=== PATIENT | female | born 1995 | race American Indian/Alaskan Native ===

== ENCOUNTER 2017-02-11 09:53 | Emergency (ER) | payer OTHER ==
[2017-02-11 09:54] VITALS: BMI 17.7
[2017-02-11 10:08] VITALS: BP 114/77; PULSE 76; RESP 16; TEMP 98; O2SAT 100
[2017-02-11] MEDS ORDERED: Sodium Chloride 0.9% 1,000 ML IV ONE (10:28)
[2017-02-11] MEDS ORDERED: Sodium Chloride 0.9% 1,000 ML ONE (10:33)
[2017-02-11 10:56] LABS: BASO % 0.8 % (0.0-2.0); EOS # 0.1 K/uL (0.0-0.7); EOS % 1.8 % (0.0-4.0); HEMOGLOBIN 10.9 g/dL (11.0-16.0); LYMPH # 1.2 K/uL (1.0-4.3); LYMPH % 31.2 % (20.0-40.0); MEAN CELL VOLUME 77.5 fL (81.0-99.0); MEAN CORPUSCULAR HEMOGLOBIN 24.8 pg (27.0-31.0); MEAN PLATELET VOLUME 8.9 fL (7.2-11.7); MONO # 0.4 K/uL (0.0-0.8); MONO % 10.2 % (0.0-10.0); NEUT # 2.2 K/uL (1.8-7.0); NRBC % 0.1 % (0.0-2.0); RBC 4.39 Mil/uL (3.80-5.20); RED CELL DISTRIBUTION WIDTH 16.8 % (11.5-14.5); WHITE BLOOD COUNT 3.9 K/uL (4.8-10.8)
[2017-02-11 10:59] LABS: HCG,QUALITATIVE URINE NEGATIVE (NEGATIVE)
[2017-02-11 11:05] LABS: ALBUMIN 3.9 g/dL (3.5-5.0)
[2017-02-11 11:07] LABS: SQUAMOUS EPITHIAL 65 /hpf (0-5); URINE BACTERIA RARE (<OCC); URINE BILIRUBIN NEGATIVE (NEGATIVE); URINE BLOOD 3+ (NEGATIVE); URINE CLARITY Hazy (Clear); URINE GLUCOSE (UA) NORMAL (Normal); URINE LEUKOCYTE ESTERASE NEG Leu/uL (Negative); URINE NITRATE NEGATIVE (NEGATIVE); URINE PROTEIN 2+ mg/dL (NEGATIVE); URINE UROBILINOGEN NORMAL mg/dL (0.2-1.0)
[2017-02-11 11:08] LABS: ALB/GLOB RATIO 1.3 (1.0-2.1); ALT/SGPT 29 U/L (9-52); AST/SGOT 22 U/L (14-36); BLOOD UREA NITROGEN 11 mg/dL (7-17); GFR AFRICAN-AMERICAN > 60; GFR NON-AFRICAN AMERICAN > 60; URINE COLOR YELLOW (YELLOW)
[2017-02-11 11:09] LABS: LIPASE 131 U/L (23-300)
[2017-02-11 11:24] LABS: PHENCYCLIDINE, UR NEGATIVE (NEGATIVE)
[2017-02-11 11:29] LABS: BARBITURATES, UR NEGATIVE (NEGATIVE); BENZODIAZEPINES, UR NEGATIVE (NEGATIVE); OPIATES, UR POSITIVE (NEGATIVE)
--- NOTE | 2017-02-11 11:30 | US ---
HISTORY: abd pain COMPARISON: None available. TECHNIQUE: Sonographic evaluation of the abdomen. FINDINGS: LIVER: Measures 16.6 cm in sagittal dimension and appears within normal limits of size, shape, and echotexture. No focal hepatic mass identified. The main portal vein appears patent with normal directional flow. No intrahepatic bile duct dilatation. GALLBLADDER: Gallstones. 7 mm echogenic focus likely gallbladder polyp. No gallbladder wall thickening. Negative sonographic Abdi's sign as assessed by the outside dealer sales representative. COMMON BILE DUCT: Measures 3 mm. PANCREAS: Not well visualized. RIGHT KIDNEY: Measures 11.5 x 4.8 x 5.3cm. No obstructing calculus or hydronephrosis identified. LEFT KIDNEY: Measures 11.1 x 5.3 x 6.0cm. No obstructing calculus or hydronephrosis identified. SPLEEN: Measures approximately 10 cm. AORTA: Limited views appear unremarkable. IVC: Limited views appear unremarkable. OTHER FINDINGS: None. IMPRESSION: Cholelithiasis. Probable 7 mm gallbladder polyp. No consensus exist regarding management of polyps in the size range. Current recommendations indicate continued surveillance with serial follow-up imaging at 3, 6, and 12 months.
--- NOTE | 2017-02-11 12:09 | C.PDOC ---
History Of Present Illness 21 y/o female presents to the ED for evaluation of RUQ abdominal pain for the last week. Notes pain is not changed with food. Pt reports having similar symptoms in the past. Patient states she was recently diagnosed with gallstones , but has not followed up with GI yet. Otherwise, denies any nausea, vomiting, diarrhea, changes in bowel habits, dysuria, hematuria, frequency, flank pain, vaginal discharge, vaginal bleeding, fever, chills, or any other associated symptoms at this time. Time Seen by Provider: 02/11/17 09:58 Chief Complaint (Nursing): Abdominal Pain History Per: Patient History/Exam Limitations: no limitations Onset/Duration Of Symptoms: Days (1 week) Current Symptoms Are (Timing): Still Present Location Of Pain/Discomfort: RUQ Radiation Of Pain To:: None Quality Of Discomfort: "Pain" Associated Symptoms: denies: Fever, Chills, Nausea, Vomiting, Diarrhea, Loss Of Appetite, Back Pain, Chest Pain, Constipation, Urinary Symptoms Exacerbating Factors: None Alleviating Factors: None Recent travel outside of the [place]: No Additional History Per: Patient Abnormal Vaginal Bleeding: No Past Medical History Reviewed: Historical Data, Nursing Documentation, Vital Signs Vital Signs: Last Vital Signs Temp 98.0 F 02/11/17 10:07 Pulse 76 02/11/17 10:07 Resp 16 02/11/17 10:07 BP 114/77 02/11/17 10:07 Pulse Ox 100 02/11/17 15:38 - Medical History PMH: Anemia, Gall Bladder Disease Family History: States: Unknown Family Hx - Social History Hx Alcohol Use: No Hx Substance Use: No - Immunization History Hx Tetanus Toxoid Vaccination: No Hx Influenza Vaccination: No Hx Pneumococcal Vaccination: No Review Of Systems Except As Marked, All Systems Reviewed And Found Negative. Constitutional: Negative for: Fever, Chills Gastrointestinal: Positive for: Abdominal Pain (RUQ). Negative for: Nausea, Vomiting, Diarrhea, Constipation Genitourinary: Negative for: Dysuria, Frequency, Incontinence, Hematuria, Vaginal Discharge, Vaginal Bleeding Musculoskeletal: Negative for: Back Pain Physical Exam - Physical Exam Appears: Non-toxic, No Acute Distress Skin: Normal Color, Warm, Dry Head: Atraumatic, Normacephalic Eye(s): bilateral: Normal Inspection, EOMI Nose: Normal Oral Mucosa: Moist Neck: Normal ROM, Supple Chest: Symmetrical Cardiovascular: Rhythm Regular, No Murmur Respiratory: Normal Breath Sounds, No Rales, No Rhonchi, No Wheezing Gastrointestinal/Abdominal: Soft, Tenderness (RUQ), No Guarding, No Rebound Back: Normal Inspection Extremity: Normal ROM Neurological/Psych: Oriented x3, Normal Speech ED Course And Treatment - Laboratory Results Result Diagrams: 02/11/17 10:46 02/11/17 10:46 O2 Sat by Pulse Oximetry: 100 (RA) Pulse Ox Interpretation: Normal - CT Scan/US Abd US Other Rad Studies (CT/US): Read By Radiologist, Radiology Report Reviewed CT/US Interpretation: HISTORY: abd pain. COMPARISON: None available. TECHNIQUE: Sonographic evaluation of the abdomen. FINDINGS: LIVER: Measures 16.6 cm in sagittal dimension and appears within normal limits of size, shape, and echotexture. No focal hepatic mass identified. The main portal vein appears patent with normal directional flow. No intrahepatic bile duct dilatation. GALLBLADDER: Gallstones. 7 mm echogenic focus likely gallbladder polyp. No gallbladder wall thickening. Negative sonographic Abdi's sign as assessed by the assembler unit. COMMON BILE DUCT: Measures 3 mm. PANCREAS: Not well visualized. RIGHT KIDNEY: Measures 11.5 x 4.8 x 5.3cm. No obstructing calculus or hydronephrosis identified. LEFT KIDNEY: Measures 11.1 x 5.3 x 6.0cm. No obstructing calculus or hydronephrosis identified. SPLEEN: Measures approximately 10 cm. AORTA: Limited views appear unremarkable. IVC: Limited views appear unremarkable. OTHER FINDINGS: None. IMPRESSION: Cholelithiasis. Probable 7 mm gallbladder polyp. No consensus exist regarding management of polyps in the size range. Current recommendations indicate continued surveillance with serial follow-up imaging at 3, 6, and 12 months. Progress Note: Blood work, urinalysis, abdomen ultrasound ordered and reviewed. Patient was treated with Pepcid, Toradol, and IV fluids. Patient is resting comfortably, abdomen remains soft. Patient reports feeling better, with improvement of pain. Patient feels comfortable going home, and will be discharged home with instructions to follow up with GI specialist in 1-2 days. Discussed with pt results with US , copy given , and instructed strict follow up with serial US for polyp. Also discussed hematuria. Pt denies vaginal bleeding or discharge or pain. Instructed repeat to ensure resolution. Disposition - Disposition Referrals: Cornelio Goff MD [Staff Provider] - Disposition: HOME/ ROUTINE Disposition Time: 12:07 Condition: STABLE Additional Instructions: Avoid fatty and greasy food. Follow up with your primary medical doctor or clinic in 2-5 days for further evaluation. Return to the emergency department at any time if symptoms persist or worsen. Prescriptions: Naproxen [Naprosyn] 1 tab PO BID PRN #20 tab PRN Reason: Pain Instructions: Acute Abdominal Pain (ED) Forms: [employer] (Indonesian) - Clinical Impression Clinical Impression: Abdominal pain, Cholelithiasis - PA / BUCKET CHUCKER / Resident Statement MD/DO has reviewed & agrees with the documentation as recorded. - Scribe Statement The provider has reviewed the documentation as recorded by the Scribester Ring All medical record entries made by the Selamibester were at my direction and personally dictated by me. I have reviewed the chart and agree that the record accurately reflects my personal performance of the history, physical exam, medical decision making, and the department course for this patient. I have also personally directed, reviewed, and agree with the discharge instructions and disposition.
== END 2017-02-11 13:00 | disposition home or self-care (01) ==
LOC: C.ER 09:53
DX: K80.20 Calculus of gallbladder without cholecystitis without obstruction (principal); R10.11 Right upper quadrant pain
CPT/HCPCS: 76700; 80053; 81001; 83690; 84703; 85025; 96361; 96374; 96375; 99284; G0480; J1885; J7040

== ENCOUNTER 2017-05-26 18:13 | Emergency (ER) | payer MEDICAID, OTHER ==
[2017-05-26 18:13] VITALS: BMI 17.7
[2017-05-26 18:18] VITALS: BP 121/76; PULSE 77; RESP 20; TEMP 98.1; O2SAT 100
--- NOTE | 2017-05-26 19:00 | C.PDOC ---
History Of Present Illness 21 year old female presents to Emergency Department for evaluation of vaginal discharge with foul odor for the past week. Patient reports vaginal irritation. Notes trying Monistat and Diflucan without significant relief. Denies dysuria, hematuria, pelvic pain, or fever. Time Seen by Provider: 05/26/17 18:28 Chief Complaint (Nursing): Female Genitourinary History Per: Patient History/Exam Limitations: no limitations Onset/Duration Of Symptoms: Days Current Symptoms Are (Timing): Still Present Severity: None Pain Scale Rating Of: 0 Associated Symptoms: denies: Back Pain, Urinary Symptoms Alleviating Factors: None Recent travel outside of the [place]: No Additional History Per: Patient Abnormal Vaginal Bleeding: No Past Medical History Reviewed: Historical Data, Nursing Documentation, Vital Signs Vital Signs: Last Vital Signs Temp 98.1 F 05/26/17 18:16 Pulse 77 05/26/17 18:16 Resp 20 05/26/17 18:16 BP 121/76 05/26/17 18:16 Pulse Ox 100 05/26/17 19:22 - Medical History PMH: Anemia, Gall Bladder Disease Family History: States: Unknown Family Hx - Social History Hx Alcohol Use: No Hx Substance Use: No - Immunization History Hx Tetanus Toxoid Vaccination: No Hx Influenza Vaccination: No Hx Pneumococcal Vaccination: No Review Of Systems Constitutional: Negative for: Fever, Chills Gastrointestinal: Negative for: Nausea, Vomiting, Abdominal Pain Genitourinary: Positive for: Vaginal Discharge. Negative for: Dysuria, Frequency, Hematuria, Vaginal Bleeding, Pelvic Pain, Rash Musculoskeletal: Negative for: Back Pain Physical Exam - Physical Exam Appears: Non-toxic, No Acute Distress Skin: Normal Color, Warm, Dry Head: Atraumatic, Normacephalic Eye(s): bilateral: Normal Inspection Oral Mucosa: Moist Neck: Supple Cardiovascular: Rhythm Regular Respiratory: No Accessory Muscle Use Gastrointestinal/Abdominal: Soft, No Tenderness Pelvic: No Vaginal Bleeding, Vaginal Discharge (thin white discharge), No Cervical Motion Tenderness, No Adnexal Tenderness Extremity: Normal ROM Neurological/Psych: Oriented x3, Normal Speech Gait: Steady ED Course And Treatment O2 Sat by Pulse Oximetry: 100 (on RA) Pulse Ox Interpretation: Normal Medical Decision Making Medical Decision Making: Plan: * Cultures for GC/C * Urinalysis Patient will be treated for BV with flagyl. Will contact with lab results. Patient feels comfortable going home and will be discharged. Patient given follow up instructions. Disposition Counseled Patient/Family Regarding: Diagnosis, Need For Followup, Rx Given - Disposition [facility]] Disposition: HOME/ ROUTINE Disposition Time: 19:18 Condition: STABLE Additional Instructions: Follow up with your primary medical doctor or clinic in 2-5 days for further evaluation. Take medications as prescribed. Return to the emergency department at any time if symptoms persist or worsen. Prescriptions: metroNIDAZOLE [Flagyl] 500 mg PO BID #14 tab Instructions: Metronidazole (By mouth), Bacterial Vaginosis (ED) Forms: [employer] (Divehi) - POA Present On Arrival: None - Clinical Impression Clinical Impression: Bacterial vaginosis - PA / FURNACE KEEPER / Resident Statement MD/DO has reviewed & agrees with the documentation as recorded. - Scribe Statement The provider has reviewed the documentation as recorded by the Scribe Romana Ring All medical record entries made by the Selamibester were at my direction and personally dictated by me. I have reviewed the chart and agree that the record accurately reflects my personal performance of the history, physical exam, medical decision making, and the department course for this patient. I have also personally directed, reviewed, and agree with the discharge instructions and disposition.
[2017-05-26 19:13] LABS: RBC URINE 6 /hpf (0-3); URINE BACTERIA RARE (<OCC); URINE BILIRUBIN NEGATIVE (NEGATIVE); URINE BLOOD NEGATIVE (NEGATIVE); URINE COLOR Yellow (YELLOW); URINE GLUCOSE (UA) NORMAL (Normal); URINE KETONE NEGATIVE (NEGATIVE); URINE LEUKOCYTE ESTERASE NEG Leu/uL (Negative); URINE PROTEIN 1+ mg/dL (NEGATIVE); URINE UROBILINOGEN NORMAL mg/dL (0.2-1.0); WBC URINE 2 /hpf (0-5)
== END 2017-05-26 19:46 | disposition home or self-care (01) ==
LOC: C.ER 18:13
DX: N76.0 Acute vaginitis (principal)

== ENCOUNTER 2017-10-03 11:11 | Day surgery (SDC) | payer OTHER ==
[2017-09-29 08:37] VITALS: BMI 17.1
[~2017-10-03 11:11] MED LIST: Bupivacaine 0.25% Inj(30mL) IJ ONE
[2017-10-03] MEDS ORDERED: Lidocaine/Epinephrine 1% 1:100000 10 ML IJ ONE (11:24)
[2017-10-03] MEDS: ceFAZolin IV 1 gm in Dextrose 1 GM/50 ML BAG IVPB ONE ×2 (12:08→12:50)
[2017-10-03] MEDS ORDERED: Midazolam 2 MG/2 ML VIAL ONE (12:36)
[2017-10-03] MEDS ORDERED: Propofol 10 mg/ml Inj (20 ML) ONE (12:37)
[2017-10-03] MEDS ORDERED: Lactated Ringer's 1,000 ML IV ONE (13:30)
[2017-10-03] MEDS ORDERED: Neostigmine Methylsulfate 3mg/3ml Syringe IV ONE (13:34)
[2017-10-03] MEDS: HYDROmorphone 0.5 mg/0.5 ml ISec IVP PRN ×2 (14:12→14:40)
[2017-10-03] MEDS ORDERED: HYDROmorphone 0.5 mg/0.5 ml ISec ONE (14:14)
[2017-10-03 14:31] VITALS: O2SAT 100
--- NOTE | 2017-10-03 15:11 | PCM.SURG1 ---
Surgeon's Initial Post Op Note - Surgeon's Notes Surgeon: Dr Pizano Pencil Inspector: Dr López PGY3, Negra YBARRAA Type of Anesthesia: General Endo Pre-Operative Diagnosis: cholelithiasis Operative Findings: see report Post-Operative Diagnosis: see report Operation Performed: laparoscopic cholecystectomy Specimen/Specimens Removed: gallbladder Estimated Blood Loss: EBL {In ML}: 5 Blood Products Given: N/A Drains Used: No Drains Post-Op Condition: Good Date of Surgery/Procedure: 10/03/17 Time of Surgery/Procedure: 15:10
[2017-10-03 15:50] VITALS: RESP 16
[2017-10-03 16:13] VITALS: BP 103/66; PULSE 74; TEMP 97.7
--- NOTE | 2017-10-04 06:26 | OP ---
PROCEDURE DATE: 10/03/2017 PREOPERATIVE DIAGNOSIS: Chronic cholecystitis and cholelithiasis. POSTOPERATIVE DIAGNOSIS: Chronic cholecystitis and cholelithiasis.. OPERATION DONE: Laparoscopic cholecystectomy. SURGEON: Mohamud Pizano MD JETTING MACHINE OPERATOR: Charlie López, PGY-3 resident. TYPE OF ANESTHESIA: General endotracheal tube anesthesia. ESTIMATED BLOOD LOSS: Around 10 mL. DRAINS: None. PATHOLOGY: Gallbladder with the gallstone was sent for the pathology. COMPLICATIONS: None INTRAOPERATIVE FINDINGS: The patient had changes of chronic cholecystitis and chronic cholelithiasis. DESCRIPTION OF PROCEDURE: On intraoperative steps, this is a 22-year-old female who was diagnosed with chronic cholecystitis and cholelithiasis and patient was consented for laparoscopic cholecystectomy possible open, brought into the OR, placed supine on the operating table. After the induction of anesthesia, the abdomen was prepped and draped in the usual sterile fashion. Supraumbilical transverse incision was made after incising the skin, subcutaneous tissue, and the fascia. The Karla port was placed and pneumo was created. Another 12-mm port was placed in the midline below costal margin and two 5 mm ports were placed in the midclavicular and anterior axillary line. After that, a grasper and dissector were introduced, and the gallbladder was retracted cranially. Calot's triangle dissection was done. Cystic duct and cystic artery was identified and clipped at 3 places and cut in between 2 clips nearby gallbladder, and gallbladder was dissected free from the gallbladder fossa, taken in an EndoCatch bag, taken out through the umbilical port site and sent off the table for the pathology. There was a proper hemostasis in each and every part of the procedure. All the ports were taken out under vision. Pneumo was deflated. Umbilical port site was closed in 2 layers, fascia with 0 Vicryl interrupted suture, skin with 4-0 Monocryl, and dry sterile dressing was applied. The patient tolerated the procedure well. Count of the instrument and gauze was correct. There was no apparent complication. Mohamud Pizano MD
== END 2017-10-03 16:27 | disposition home or self-care (01) ==
LOC: C.SDS 11:11
PROVIDERS: ATTEND Surgery Surgical Critical Care
DX: K80.10 Calculus of gallbladder with chronic cholecystitis without obstruction (principal)
CPT/HCPCS: 47562; 88304; J0690; J1170; J2250; J2405; J2704; J2710; J3010; J7030; J7120

== ENCOUNTER 2018-03-31 16:44 | Emergency (ER) | payer MEDICAID, OTHER ==
[2018-03-31 16:59] VITALS: BMI 18.4
[2018-03-31 17:00] VITALS: RESP 18
[2018-03-31 17:19] LABS: SQUAMOUS EPITHIAL 14 /hpf (0-5); URINE BACTERIA RARE (<OCC); URINE BILIRUBIN NEGATIVE (NEGATIVE); URINE BLOOD 3+ (NEGATIVE); URINE CLARITY Hazy (Clear); URINE COLOR Yellow (YELLOW); URINE GLUCOSE (UA) NORMAL (Normal); URINE LEUKOCYTE ESTERASE NEG Leu/uL (Negative); URINE PROTEIN 1+ mg/dL (NEGATIVE)
--- NOTE | 2018-03-31 17:27 | C.PDOC ---
History Of Present Illness 22 y/o female presents to the ED complaining of vaginal bleeding since 3:45pm today. Patient denies associated abdominal pain, nausea, or vomiting. States she went to use the bathroom and noticed the bleeding after wiping. Since then she has gone through 1 pad. Patient states that she had a positive home test 4 days ago and made an appointment with OB for next week. She also denies dysuria, frequency, fever, chills. Time Seen by Provider: 03/31/18 17:02 Chief Complaint (Nursing): Female Genitourinary History Per: Patient History/Exam Limitations: no limitations Onset/Duration Of Symptoms: Hrs (x2) Current Symptoms Are (Timing): Still Present Severity: None Pain Scale Rating Of: 0 Abnormal Vaginal Bleeding: Yes Last Menstral Period: 02/15/2018 : 3 Para: 0 Miscarriage: 2 Past Medical History Reviewed: Historical Data, Nursing Documentation, Vital Signs Vital Signs: Last Vital Signs Temp 98.5 F 03/31/18 16:58 Pulse 81 03/31/18 16:58 Resp 18 03/31/18 16:58 BP 107/75 03/31/18 16:58 Pulse Ox 97 03/31/18 17:29 - Medical History PMH: Anemia, Gall Bladder Disease Denies: Chronic Kidney Disease Surgical History: Cholecystectomy Family History: States: Unknown Family Hx - Social History Hx Alcohol Use: No Hx Substance Use: No - Immunization History Hx Tetanus Toxoid Vaccination: No Hx Influenza Vaccination: No Hx Pneumococcal Vaccination: No Review Of Systems Constitutional: Negative for: Fever, Chills Respiratory: Negative for: Shortness of Breath Gastrointestinal: Negative for: Nausea, Vomiting, Abdominal Pain Genitourinary: Positive for: Vaginal Bleeding. Negative for: Dysuria, Frequency Neurological: Negative for: Dizziness Physical Exam - Physical Exam Appears: Non-toxic, No Acute Distress Skin: Warm, Dry Head: Atraumatic, Normacephalic Eye(s): bilateral: Normal Inspection Oral Mucosa: Moist Neck: Normal ROM Chest: Symmetrical Cardiovascular: Rhythm Regular, No Murmur Respiratory: Normal Breath Sounds, No Rales, No Rhonchi, No Wheezing Gastrointestinal/Abdominal: Soft, No Tenderness, No Distention, No Guarding, No Rebound Extremity: Bilateral: Atraumatic, Normal Color And Temperature, Normal ROM Neurological/Psych: Oriented x3, Normal Speech ED Course And Treatment - Laboratory Results Result Diagrams: 03/31/18 17:26 03/31/18 17:26 O2 Sat by Pulse Oximetry: 97 (RA) Pulse Ox Interpretation: Normal Medical Decision Making Medical Decision Making: Impression: 22 y/o female with c/o vaginal bleeding Initial Plan: Blood work and urine sent. Transvaginal ultrasound ordered. Disposition - Disposition Disposition Time: 17:57 Condition: GOOD Forms: [employer] (Wolof) - Clinical Impression Clinical Impression: Vaginal bleeding affecting early - PA / ONBOARDING SPECIALIST / Resident Statement MD/DO has reviewed & agrees with the documentation as recorded. - Scribe Statement The provider has reviewed the documentation as recorded by the Scribe (Alayna Landin) All medical record entries made by the Scribe were at my direction and personally dictated by me. I have reviewed the chart and agree that the record accurately reflects my personal performance of the history, physical exam, medical decision making, and the department course for this patient. I have also personally directed, reviewed, and agree with the discharge instructions and disposition. Physician Patient Turnover Patient Signed Over To: Leslie Chou Handoff Comments: f/u pelvic ultrasound and type/screen, dispo accordlingly
[2018-03-31 17:32] LABS: BASO % 0.7 % (0.0-2.0); EOS # 0.1 K/uL (0.0-0.7); EOS % 2.1 % (0.0-4.0); HEMOGLOBIN 11.7 g/dL (11.0-16.0); LYMPH # 1.4 K/uL (1.0-4.3); LYMPH % 24.7 % (20.0-40.0); MEAN CELL VOLUME 84.6 fL (81.0-99.0); MEAN CORPUSCULAR HEMOGLOBIN 28.7 pg (27.0-31.0); MEAN CORPUSCULAR HGB CONC 33.9 g/dL (33.0-37.0); MEAN PLATELET VOLUME 9.5 fL (7.2-11.7); MONO # 0.5 K/uL (0.0-0.8); MONO % 9.6 % (0.0-10.0); NEUT # 3.5 K/uL (1.8-7.0); NEUT % 62.9 % (50.0-75.0); RBC 4.08 Mil/uL (3.80-5.20); WHITE BLOOD COUNT 5.6 K/uL (4.8-10.8)
[2018-03-31 17:44] LABS: ALB/GLOB RATIO 1.5 (1.0-2.1); ALBUMIN 4.2 g/dL (3.5-5.0); ALT/SGPT 29 U/L (9-52); AST/SGOT 15 U/L (14-36); BLOOD UREA NITROGEN 10 mg/dL (7-17); CALCIUM 8.9 mg/dl (8.6-10.4); GFR NON-AFRICAN AMERICAN > 60
[2018-03-31 21:09] VITALS: BP 105/67; PULSE 72; TEMP 98.4; O2SAT 99
--- NOTE | 2018-04-01 12:46 | US ---
Date of service: 03/31/2018 PROCEDURE: OB Pelvic Ultrasound HISTORY: preg bleeding COMPARISON: None available. FINDINGS: UTERUS: Single intrauterine gestation. Yolk sac is identified. pole is not visualized on the current examination. Gestational sac diameter measures 0.89 cm too small to characterize gestational age. Elizabeth-gestational hemorrhage: None. Uterus measures 9.1 x 5.1 x 5.1 cm. No mass CERVIX: Long and closed. No cervical abnormality seen. RIGHT OVARY: Measures 3.3 x 2.5 x 2.3 cm. No mass. Normal flow. LEFT OVARY: Measures 2.4 x 1.3 x 1.9 cm. No mass. Normal flow. FREE FLUID: There is small amount of free fluid in the cul de sac. OTHER FINDINGS: None. IMPRESSION: Single intrauterine gestational sac too small to characterize gestational age. Yolk sac is visualized. pole is not identified on the current examination. Clinical follow-up and short-term imaging follow-up is recommended to confirm viability. A preliminary report was provided by [employer].
== END 2018-03-31 20:55 | disposition home or self-care (01) ==
LOC: C.ER 16:44
DX: O20.9 Hemorrhage in early pregnancy, unspecified (principal); Z3A.00 Weeks of gestation of pregnancy not specified

== ENCOUNTER 2018-04-02 13:42 | Emergency (ER) | payer OTHER ==
[2018-04-02 13:49] VITALS: BMI 18.4
[2018-04-02 13:52] VITALS: RESP 18; TEMP 98.1
--- NOTE | 2018-04-02 14:53 | C.PDOC ---
History Of Present Illness 22 year old female presents to the emergency department status-post being seen in the ED two days ago when she had an abnormal US. Patient was instructed to return today. She denies vaginal bleeding, denies abdominal pain. Time Seen by Provider: 04/02/18 14:22 Chief Complaint (Nursing): Female Genitourinary History Per: Patient History/Exam Limitations: no limitations Onset/Duration Of Symptoms: Days (2) Reports Recently: Seen In ED (2 days ago) Past Medical History Reviewed: Historical Data, Nursing Documentation, Vital Signs Vital Signs: Last Vital Signs Temp 98.1 F 04/02/18 13:49 Pulse 79 04/02/18 16:58 Resp 18 04/02/18 16:58 BP 109/72 04/02/18 16:58 Pulse Ox 100 04/04/18 20:26 - Medical History PMH: Anemia, Gall Bladder Disease Denies: Chronic Kidney Disease Surgical History: Cholecystectomy (10/2017) Family History: States: No Known Family Hx - Social History Hx Alcohol Use: No Hx Substance Use: No - Immunization History Hx Tetanus Toxoid Vaccination: No Hx Influenza Vaccination: No Hx Pneumococcal Vaccination: No Review Of Systems Constitutional: Negative for: Fever Gastrointestinal: Negative for: Abdominal Pain Genitourinary: Negative for: Dysuria, Frequency, Vaginal Bleeding Physical Exam - Physical Exam Appears: Non-toxic, No Acute Distress Skin: Warm, Dry Head: Atraumatic, Normacephalic Eye(s): bilateral: Normal Inspection Neck: Supple Chest: Symmetrical, No Tenderness Cardiovascular: Rhythm Regular, No Murmur Respiratory: Normal Breath Sounds, No Rales, No Rhonchi, No Wheezing Gastrointestinal/Abdominal: Bowel Sounds, Soft, No Tenderness, No Guarding, No Rebound Back: No CVA Tenderness Neurological/Psych: Oriented x3, Normal Speech, Normal Cognition ED Course And Treatment O2 Sat by Pulse Oximetry: 100 (RA) Pulse Ox Interpretation: Normal Progress Note: Plan: Beta-HCG. US OB Transvaginal Medical Decision Making Medical Decision Making: pt seen in ed 2 days ago for vaginal bleeding in . pt advised to ret to ed today for repeat bhcg and [place]. [place] [id number] [place] [id number], gestational sac on today sonogram slightly larger than 2 days ago; no fhr noted. pt has appt with executive search consultant on tuesday; advised pelvic rest until then and to bring both sonogram reports with her. pt understands plan. Disposition Counseled Patient/Family Regarding: Studies Performed, Diagnosis, Need For Followup - Disposition Referrals: [facility] [Provider Group] Disposition: HOME/ ROUTINE Disposition Time: 17:38 Condition: GOOD Additional Instructions: Recommend pelvic rest- nothing in vagina. Follow up with your executive search consultant on Wed as scheduled; bring sonogram reports with you. Take pre- vitamins. Return to ER for abdominal pain. heavy vaginal bleeding. passing clots or tissue or any other concerns. Forms: [employer] ([place] [employer]), General Discharge Instructions - Clinical Impression Clinical Impression: Early stage of - PA / FRAME AND SCRAP CRUSHER / Resident Statement MD/DO has reviewed & agrees with the documentation as recorded. - Scribe Statement The provider has reviewed the documentation as recorded by the Scribe (Imer Villeda) All medical record entries made by the Scribe were at my direction and pers onally dictated by me. I have reviewed the chart and agree that the record accurately reflects my personal performance of the history, physical exam, medical decision making, and the department course for this patient. I have also personally directed, reviewed, and agree with the discharge instructions and disposition.
[2018-04-02 16:59] VITALS: BP 109/72; PULSE 79
--- NOTE | 2018-04-02 17:23 | US ---
Date of service: 04/02/2018 PROCEDURE: OB Pelvic Ultrasound HISTORY: preg, f/u 2 from 2 days ago COMPARISON: 03/31/2018. FINDINGS: UTERUS: Single intrauterine gestation. Yolk sac is visualized CRL measures 0.22 cm equivalent to 4 weeks and 5 days of gestational age. Gestational sac diameter measures 1.30 cm equivalent to 5 weeks and 4 days of gestational age. age (Ultrasound estimated): 5 weeks and 5 days. Date of delivery (Ultrasound estimated) : 11/28/2018 cardiac activity is not documented on the current examination.. Elizabeth-gestational hemorrhage: None. Uterus measures 8.8 x 5.1 x 4.8 cm. No mass CERVIX: Long and closed. No cervical abnormality seen. RIGHT OVARY: Measures 3.1 x 2.2 x 2.3 cm. No mass. Normal flow. There is a 1.6 x 1.0 x 1.7 cm cyst. LEFT OVARY: Measures 2.6 x 1.5 x 2.0 cm. No mass. Normal flow. FREE FLUID: None. OTHER FINDINGS: None. IMPRESSION: Single intrauterine gestational sac with mean gestational age of 5 weeks and 5 days. Yolk sac and pole are visualized. cardiac activity is not documented on the current examination likely related to early gestation. Clinical and imaging follow-up is advised to assess viability.
[2018-04-02 17:37] VITALS: O2SAT 100
== END 2018-04-02 17:42 | disposition home or self-care (01) ==
LOC: C.ER 13:42
DX: O26.891 Other specified pregnancy related conditions, first trimester (principal); Z3A.01 Less than 8 weeks gestation of pregnancy